=== PATIENT | male | born 1960 | race Caucasian/White ===

== ENCOUNTER 2024-11-10 17:25 | Emergency (ER) | payer MEDICARE ==
[~2024-11-10] VITALS: Ht 182.9 cm; Wt 90.7 kg
[2024-11-10 17:26] VITALS: O2SAT 98
[2024-11-10] MEDS ORDERED: NEOMY/BACITRA/POLYMYXIN B OINT UD PACKET TP ONE (17:54)
[2024-11-10] MEDS ORDERED: IBUPROFEN 600 MG TABLET ONE (17:54)
[2024-11-10] MEDS: IBUPROFEN 600 MG TABLET PO ONE (17:55)
[2024-11-10] MEDS: NEOMY/BACITRA/POLYMYXIN B OINT UD PACKET TP ONE (17:55)
== END 2024-11-10 18:13 | disposition home or self-care (01) ==
LOC: ER 17:25
DX: L84 Corns and callosities (principal); Z59.00 Homelessness unspecified
CPT/HCPCS: A4606; A4663